=== PATIENT | female | born 1970 | race African-American/Black ===

== ENCOUNTER 2020-07-19 15:14 | Emergency (ER) | payer OTHER, SELFPAY ==
--- NOTE | ~2020-07-19 | XR_ITS ---
EXAMINATION: XR chest 2V DATE: 07/19/2020 15:42 INDICATION: Left-sided chest pain radiating down the left arm and hand TECHNIQUE: PA and lateral views of the chest were obtained. COMPARISON: Chest radiograph dated 02/25/2015 FINDINGS: The lungs remain clear with no focal airspace opacities, pulmonary edema, pleural effusion or pneumot horax. Borderline cardiomegaly. Mild thoracic levocurvature and mild thoracolumbar dextrocurvature wi th mild thoracic spondylosis. IMPRESSION: 1. Borderline cardiomegaly. Clear lungs. Reviewed, dictated and finalized at location H. STITCHER OPERATOR
--- NOTE | ~2020-07-19 | XR_ITS ---
EXAMINATION: XR hand LT min 3V EXAM DATE: 07/19/2020 16:13 INDICATION: No known recent injury provided at this time. Pain of the left hand. TECHNIQUE: Left hand frontal, lateral and oblique projections obtained and reviewed. There is no jennifer or study for comparison. FINDINGS: Left metacarpal bones are unremarkable. There are no acute fractures or dislocations ident ified. There is no subcutaneous gas. The soft tissue is unremarkable. There are no bony erosions identified. IMPRESSION: No acute osseous findings. Reviewed, dictated and finalized at location A. ECT MANAGEMENT CONSULTANT IMPRESSION: No acute osseous findings.
[2020-07-19 15:18] VITALS: BP 157/90; PULSE 67; RESP 18; O2SAT 98
[2020-07-19 15:25] VITALS: PULSE 73; RESP 17; O2SAT 98
--- NOTE | 2020-07-19 15:26 | ECG_ITS ---
Measurements Intervals [place] Rate: 67 P: 42 VA: 190 QRS: -57 QRSD: 95 T: -15 QT: 390 QTc: 412 Interpretive Statements SINUS RHYTHM LEFT ANTERIOR FASCICULAR BLOCK BORDERLINE T WAVE ABNORMALITY- INFERIOR LEADS ABNORMAL ECG Electronically Signed On 07-19-2020 20:14:07 MEAT DEPARTMENT MANAGER by Jordi Park D.O.
[2020-07-19 15:32] VITALS: PULSE 64; RESP 15; O2SAT 93
--- NOTE | 2020-07-19 15:37 | ED.CHESTPAIN ---
HPI - Chest Pain General Chief Complaint: Chest Pain Stated Complaint: chest/arm pain Time Seen by Provider: 07/19/20 15:33 History of Present Illness HPI narrative: Left middle finger pain for a couple of months. Radiates up the arm to the chest. Not better or worse with anything. Tried splinting it without improvement. No injury, swelling, color change. She reports that she has chronic chest pain. Related Data Home Medications Medication Instructions Recorded Confirmed No Home Medications 07/19/20 07/19/20 Allergies Allergy/AdvReac Type Severity Reaction Status Date / Time No Known Allergies Allergy Verified 07/19/20 15:24 Review of Systems Review of Systems: All systems reviewed & are unremarkable except as noted in HPI and below Constitutional: Constitutional: Denies chills, Denies fever(s) and Denies weakness Cardiovascular: Cardiovascular: Reports chest pain Respiratory: Respiratory: Denies dyspnea Gastrointestinal: Gastrointestinal: Denies nausea Neurologic: Reports numbness and Denies weakness [facility] Past Medical History Medical History (Updated 07/20/20 @ 00:00 by Abbie Henao) Chronic chest pain Social History Social History (Updated 07/19/20 @ 16:48 by Arsenio Quispe MD) Smoking status: Never smoker Exam Const: General: healthy appearing, no acute distress and alert Orientation/consciousness: patient oriented x3 HENMT: Head: normal to inspection Neck: Neck: normal visual inspection and no lymphadenopathy Chest: Chest palpation & inspection: no tenderness Resp: Effort & Inspection: normal respiratory effort Auscultation: clear to auscultation bilaterally, no rales, no rhonchi and no wheezes Cardio: Jugular venous distension: no JVD Rate: regular rate Rhythm: regular rhythm Heart sounds: no murmurs GI: Inspection: non-distended GI Palp: Yes Soft to palpation and No Tenderness to palpation present (GI) Skin: General skin exam: normal color Neuro: General: patient oriented x3 and moves all extremities Speech: normal speech Extrem: Other: Aside from reported pain, otherwise completely normal exam of hands and entire upper extremities Psych: Appearance: well kempt Affect: normal affect Course Vital Signs Vital signs: Vital Signs Pulse Rate 67 07/19/20 15:18 Respiratory Rate 18 07/19/20 15:18 Blood Pressure 157/90 H 07/19/20 15:18 Pulse Oximetry 98 11/19/20 15:18 Pulse Rate 82 07/19/20 17:01 Respiratory Rate 16 07/19/20 17:01 Blood Pressure 135/76 07/19/20 17:01 Pulse Oximetry 99 07/19/20 17:01 MDM - Chest Pain Differential Diagnosis Differential diagnosis: Likely other (Hand pain, fracture, arthritis) Medical Records Data Attestation: I reviewed the patient's medical records. Lab Data Attestation: I reviewed the patient's lab results. Result diagrams: 07/19/20 15:40 07/19/20 15:40 Labs: Lab Results 07/19/20 07/19/20 07/19/20 Range/Units 15:40 15:40 16:08 WBC 6.9 (4.5-10.0) K/mm3 RBC 4.21 (4.2-5.4) M/mm3 Hgb 13.0 (12.0-15.0) g/dL Hct 38.9 (37.0-47.0) % MCV 92.4 (80-100) fl MCH 30.9 (26-34) pg MCHC 33.4 (32-36) g/dl RDW 11.9 (11.5-14.5) % Plt Count 162 (150-375) k/mm3 MPV 10.3 (7.4-10.4) fl Immature Gran % (Auto) 0.3 (0-0.5) % Neut % (Auto) 55.2 (45.5-73.1) % Lymph % (Auto) 36.5 (18.3-44.2) % [place] % (Auto) 5.4 (2.6-8.5) % Eos % (Auto) 2.3 (0-4.4) % Baso % (Auto) 0.3 (0.2-1.2) % Lymph # (Auto) 2.51 (0.9-3.2) K/mm3 [place] # (Auto) 0.4 (0.1-0.6) K/mm3 Eos # (Auto) 0.2 (0-0.3) K/mm3 Baso # (Auto) 0.0 (0.0-0.1) K/mm3 Abs Immat Gran (auto) 0.02 (0.00-0.031) K/mm3 Absolute Neuts (auto) 3.8 (1.3-6.7) K/mm3 Absolute Nucleated RBC 0.0 (0.0-0.012) K/mm3 Nucleated RBC % 0.0 (0.0-0.2) % PT 13.3 (11.1-14.7) Seconds INR 1.0 APTT 29.1 (22.3-36.8) SECONDS So
[2020-07-19 15:45] VITALS: PULSE 68; RESP 19; O2SAT 100
[2020-07-19 15:48] LABS: Basophils Percent Auto 0.3 % (0.2-1.2); Eosinophils Absolute Auto 0.2 K/mm3 (0-0.3); Eosinophils Percent Auto 2.3 % (0-4.4); Hematocrit 38.9 % (37.0-47.0); Immature Granulocyte Absolute 0.02 K/mm3 (0.00-0.031); Immature Granulocyte Percent A 0.3 % (0-0.5); Lymphocytes Absolute Auto 2.51 K/mm3 (0.9-3.2); Lymphocytes Percent Auto 36.5 % (18.3-44.2); Mean Corpuscular HGB Conc 33.4 g/dl (32-36); Mean Corpuscular Hemoglobin 30.9 pg (26-34); Mean Corpuscular Volume 92.4 fl (80-100); Mean Platelet Volume 10.3 fl (7.4-10.4); Monocytes Absolute Auto 0.4 K/mm3 (0.1-0.6); Monocytes Percent Auto 5.4 % (2.6-8.5); Neutrophils Absolute Auto 3.8 K/mm3 (1.3-6.7); Neutrophils Percent Auto 55.2 % (45.5-73.1); Platelet Count Result 162 k/mm3 (150-375); Red Blood Count 4.21 M/mm3 (4.2-5.4); Red Cell Distribution Width 11.9 % (11.5-14.5); White Blood Count 6.9 K/mm3 (4.5-10.0)
[2020-07-19 15:58] LABS: Anion Gap 11 mmol/L (8-16); Blood Urea Nitrogen 11 mg/dL (7-17); Calcium 9.6 mg/dL (8.4-10.2); Carbon Dioxide 27 mmol/L (22-30); Chloride 103 mmol/L (98-107); Estimated CRCL calculation 80 ml/min; Estimated Glomerular Filt Rate > 60; Glucose 94 mg/dL (65-105); Potassium 3.9 mmol/L (3.4-5.0); Sodium 141 mmol/L (137-145)
[2020-07-19 16:00] VITALS: PULSE 65; RESP 19; O2SAT 100
[2020-07-19 16:09] LABS: Troponin I < 0.012 ng/mL (0.000-0.034)
[2020-07-19 16:24] LABS: Prothrombin Time 13.3 Seconds (11.1-14.7)
[2020-07-19 16:25] LABS: Partial Thromboplastin Time 29.1 SECONDS (22.3-36.8)
[2020-07-19 17:01] VITALS: BP 135/76; PULSE 82; RESP 16; O2SAT 99
== END 2020-07-19 17:02 | disposition home or self-care (01) ==
PROVIDERS: Emergency Provider Emergency Medicine; PCP Internal Medicine Gastroenterology
DX: M79.645 Pain in left finger(s) (principal)
CPT/HCPCS: 36415; 71046; 73130; 80048; 84484; 85025; 85610; 85730; 93005; 99284

== ENCOUNTER 2020-10-08 13:52 | Emergency (ER) | payer OTHER, SELFPAY ==
--- NOTE | ~2020-10-08 | XR_ITS ---
XR forearm RT 2V 10/08/2020 14:52 INDICATION: Right arm pain after injury PROCEDURE: 2 views right forearm COMPARISON: No prior studies for comparison. FINDINGS: Fracture, dislocation or subluxation is not identified. The soft tissues appear within norm al limits. No foreign bodies are identified. IMPRESSION: 1: NO ACUTE BONE OR JOINT ABNORMALITY IDENTIFIED. Reviewed, dictated and finalized at location B. DESIGNER DEVELOPER
--- NOTE | ~2020-10-08 | XR_ITS ---
XR shoulder RT min 2V 10/08/2020 14:52 INDICATION: Right shoulder pain after injury PROCEDURE: 4 views right shoulder COMPARISON: No prior studies for comparison. FINDINGS: Fracture, dislocation or subluxation is not identified. The soft tissues appear within norm al limits. No foreign bodies are identified. IMPRESSION: 1: NO ACUTE BONE OR JOINT ABNORMALITY IDENTIFIED. Reviewed, dictated and finalized at location B. LE FINANCIALS DEVELOPER
[2020-10-08 13:56] VITALS: BP 137/83; PULSE 70; RESP 16; TEMP 36.1; O2SAT 98
--- NOTE | 2020-10-08 14:35 | PC.NURSE ---
patient brought back to ED room 18 with c/o right forearm pain. see initial triage notes. no change in condition. patient has been in our waiting area due to no beds available in ED. assessments documented. waiting for further orders from provider.
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
--- NOTE | 2020-10-08 15:03 | PC.NURSE ---
patient back from xray. sitting in chair in room. updated on expected wait time.
[2020-10-08 16:09] VITALS: BP 148/82; PULSE 88; RESP 20; O2SAT 98
== END 2020-10-08 16:10 | disposition home or self-care (01) ==
PROVIDERS: Emergency Provider Emergency Medicine; PCP Internal Medicine Gastroenterology
DX: S50.11XA Contusion of right forearm, initial encounter (principal); W51.XXXA Accidental striking against or bumped into by another person, initial encounter
CPT/HCPCS: 73030; 73090; 99284; A4565

== ENCOUNTER 2021-03-07 14:50 | Emergency (ER) | payer OTHER, SELFPAY ==
[2021-03-07 15:06] VITALS: BP 130/79; PULSE 87; RESP 20; TEMP 37.1; O2SAT 98
--- NOTE | 2021-03-07 15:34 | ED.GENADULT ---
HPI - General Adult General Chief complaint: Upper Respiratory Infection Stated complaint: sore thoat Time Seen by Provider: 03/07/21 15:34 Source: patient and RN notes reviewed Mode of arrival: ambulatory Limitations: no limitations History of Present Illness HPI narrative: 50-year-old -[place] Citizen female presents with complaints of throat irritation, back pain, body aches, and nausea for the past 5 days. Shweta reports increasing symptoms. ?No treatment. No high fevers, drooling, neck or throat swelling. Pain is bilateral. Hurts to swallow. ?Exacerbation factors consist of eating and drinking. ?No rhinorrhea or nasal congestion. ?Hoarse voice increased after singing at [employer] on March 03, 2021. ?Nausea without vomiting or abdominal pain. ?Tolerating liquids well. ?Denies chills, fatigue, dyspnea, difficulty swallowing, jaw pain, dental pain, facial pain, foreign body sensation, and rash. ?Remains active. The patient reports she was diagnosed with COVID-19 in March 2020. ?The patient reports she is not waiting for the results of a COVID-19 lab test. The patient reports she does not have a new or worsening cough. Denies chest pain. The patient reports she does not have any loss of taste or smell and diarrhea. ?Denies recent traveling. ?Denies concerns for COVID-19 or exposures. ?At this time, the patient is not suspected of having COVID-19. Some parts of this dictation were generated by voice recognition software and may contain typographical and/or grammatical inaccuracies. Related Data Allergies Allergy/AdvReac Type Severity Reaction Status Date / Time No Known Allergies Allergy Verified 10/08/20 14:00 Review of Systems Review of Systems: Narrative: CONSTITUTIONAL: Denies fever, chills, sweats. EYES: Denies visual changes, redness, discharge. ENT: Denies rhinorrhea, otalgia, sore throat. Complains of irritated throat, congestion. CARDIOVASCULAR: Denies chest pain, palpitations, edema. RESPIRATORY: Denies dyspnea, wheezing, cough. GASTROINTESTINAL: Denies abdominal pain, vomiting, diarrhea. Complains of nausea. GENITOURINARY: Denies dysuria, hematuria, abnormal discharge. SKIN: Denies rash or itching. MUSCULOSKELETAL: Denies joint pain, or myalgia. Complains of acute back pain. NEUROLOGIC: Denies numbness or focal weakness. PSYCHIATRIC: Denies anxiety or depression. All systems reviewed & are unremarkable except as noted in HPI and below. [facility] Past Medical History Medical History (Updated 03/08/21 @ 00:01 by Abbie Henao) Chronic chest pain COVID-19 03/2020 Postmenopausal Surgical History Surgical History (Updated 03/07/21 @ 15:45 by YOSSI Mcknight) No significant past surgical history Family History Family History (Updated 03/07/21 @ 15:46 by YOSSI Mcknight) Father Hypertension Mother , Related to COVID-19 Hypertension COVID-19 Social History Social History (Updated 03/07/21 @ 15:47 by YOSSI Mcknight) Smoking status: Never smoker Tobacco type: cigarettes Second hand tobacco smoke exposure: No Alcohol intake: never Substance use: never Substance use type: does not use Living arrangements: with family Occupation/Education: occupation Gender identity (if verbalized by the patient): Female Sexual Orientation (if Verbalized by the Patient): Straight or Heterosexual Comments At time of signature, agree with the nurse past medical, surgical, social, and family history. There is no relevant family history pertinent to the presenting complaint. Exam Narrative: Exam Narrative: GENERAL: This is a well-nourished, well-developed patient, in no apparent distress. Speaks in full sentences without deficits and ambulates with steady gait without dyspnea. HEAD: Normocephalic, atraumatic. EYES: PERRL. Sclera clear/white. Vision is grossly intact. EARS: External ears normal, auditory canals clear and without drainage, TMs normal without perforation. H
== END 2021-03-07 16:01 | disposition home or self-care (01) ==
PROVIDERS: Emergency Provider Nurse Practitioner Family; PCP Internal Medicine Gastroenterology
DX: J02.9 Acute pharyngitis, unspecified (principal); Z86.16 Personal history of COVID-19
CPT/HCPCS: 87081; 87880; 99213; G0463

== ENCOUNTER 2021-08-05 10:56 | Emergency (ER) | payer OTHER, SELFPAY ==
--- NOTE | ~2021-08-05 | CT_ITS ---
EXAMINATION: CT abdomen pelvis wo con DATE: 08/05/2021 13:37 INDICATION: Abdominal pain. TECHNIQUE: Computed tomography (CT) of the abdomen and pelvis was performed without intravenous contr ast. Automated exposure control and iterative reconstruction technique were employed. The dose-length product was 602.14 mGy-cm. COMPARISON: CT abdomen and pelvis 05/30/2015 FINDINGS: The visualized portions of the lung bases demonstrate mild atelectasis. No pleural effusion . The heart size is normal. No pericardial effusion. There are cysts in the liver measuring up to 2.1 cm. The spleen, gallbladder, pancreas, adrenal glands, and kidneys are normal. There is no urolithia sis. There are no dilated loops of bowel. The appendix is normal. There are no pathologically enlarge d lymph nodes. There is no free intraperitoneal fluid. There is mild thoracolumbar spondylosis. IMPRESSION: 1. No etiology for the patient's symptoms. Reviewed, dictated and finalized at location A. BROADCASTER
--- NOTE | ~2021-08-05 | XR_ITS ---
EXAMINATION: XR chest 2V DATE: 08/05/2021 12:42 INDICATION: Left-sided chest pain TECHNIQUE: PA and lateral views of the chest are obtained. COMPARISON: 07/19/2020 FINDINGS: The lungs are free of acute opacities. There is no pleural effusion or pneumothorax. The ca rdiomediastinal silhouette is normal. There is mild thoracic spondylosis. IMPRESSION: 1. No acute cardiopulmonary abnormality. Reviewed, dictated and finalized at location A. RIAL EMBALMER
[2021-08-05 11:01] VITALS: BP 149/82; PULSE 63; RESP 16; TEMP 36.1; O2SAT 99
--- NOTE | 2021-08-05 12:22 | ECG_ITS ---
Measurements Intervals [place] Rate: 59 P: 8 [place]: 180 QRS: -68 QRSD: 90 T: 11 QT: 407 QTc: 404 Interpretive Statements SINUS BRADYCARDIA LEFT AXIS DEVIATION BORDERLINE R WAVE PROGRESSION, ANTERIOR LEADS BORDERLINE T WAVE ABNORMALITY- INFERIOR LEADS BORDERLINE ECG Electronically Signed On 08-05-2021 15:02:29 HOUSEHOLD REFRIGERATOR MECHANIC by Jordi Park D.O.
--- NOTE | 2021-08-05 12:51 | ED.GENADULT ---
HPI - General Adult General Chief complaint: Abdominal Pain Stated complaint: left side pain Time Seen by Provider: 08/05/21 12:09 Source: patient History of Present Illness HPI narrative: Patient is a 50 y/o female complaining of left sided abdominal pain and left back pain. She describes her pain as contractions and rates it as 7/10. She took Alleve, which helps with her pain at least temporarily. She has no vomiting, diarrhea or dysuria. She also has some intermittent chest pain but chest pain at this time. Related Data Allergies Allergy/AdvReac Type Severity Reaction Status Date / Time No Known Allergies Allergy Verified 08/05/21 12:06 Review of Systems Constitutional: Constitutional: Denies chills, Denies fever(s), Denies headache(s) and Denies weakness Eyes: Eyes: Denies blurry vision ENT: Denies headache(s) and Denies neck pain Cardiovascular: Cardiovascular: Reports chest pain and Denies dyspnea Respiratory: Respiratory: Denies cough and Denies dyspnea Gastrointestinal: Gastrointestinal: Reports abdominal pain, Denies diarrhea, Denies nausea and Denies vomiting Genitourinary: Genitourinary: Denies hematuria and Denies dysuria Musculoskeletal: Musculoskeletal: Reports back pain and Denies neck pain Neurologic: Denies headache(s) and Denies weakness PMFSH Past Medical History Medical History Chronic chest pain COVID-19 03/2020 Postmenopausal Surgical History Surgical History No significant past surgical history Family History Family History Father Hypertension Mother , Related to COVID-19 Hypertension COVID-19 Social History Social History Smoking status: Never smoker Tobacco type: cigarettes Second hand tobacco smoke exposure: No Alcohol intake: never Substance use: never Substance use type: does not use Gender identity (if verbalized by the patient): Female Sexual Orientation (if Verbalized by the Patient): Straight or Heterosexual Exam Const: General: no acute distress and well developed Orientation/consciousness: oriented to person, oriented to place, oriented to time and patient oriented x3 HENMT: Head: normocephalic Ears: external ears normal General nose exam: Normal external nose present Eyes: General: appearance normal, both eyes and all related structures Conjunctivae: conjunctivae normal Neck: Neck: normal visual inspection and full ROM Chest: Chest palpation & inspection: normal inspection of the chest and no tenderness Resp: Effort & Inspection: normal respiratory effort Auscultation: clear to auscultation bilaterally Cardio: Rate: regular rate Rhythm: regular rhythm GI: GI Palp: No abdominal tenderness and Yes Soft to palpation Skin: General skin exam: normal color and turgor normal Neuro: General: oriented to person, oriented to place, oriented to time and patient oriented x3 Cognition (Neuro): normal cognition Extrem: General: normal to inspection, full ROM and no pedal edema Psych: Appearance: grossly normal Mental Status: mental status grossly normal Affect: normal affect Course Vital Signs Vital signs: Vital Signs Temperature 36.1 C L 08/05/21 11:01 Pulse Rate 63 08/05/21 11:01 Respiratory Rate 16 08/05/21 11:01 Blood Pressure 149/82 H 08/05/21 11:01 Pulse Oximetry 99 08/05/21 11:01 Temperature 36.1 C L 08/05/21 11:01 Pulse Rate 63 08/05/21 11:01 Respiratory Rate 16 08/05/21 11:01 Blood Pressure 149/82 H 08/05/21 11:01 Pulse Oximetry 99 08/05/21 11:01 Medical Decision Making Vital Signs Vital Signs: Vital Signs Temperature 36.1 C L 08/05/21 11:01 Pulse Rate 63 08/05/21 11:01 Respiratory Rate 16 08/05/21 11:01 Blood Pressure 149/82 H 08/05/21 11:01 Pulse Oxi
[2021-08-05 13:03] LABS: Basophils Percent Auto 0.3 % (0.2-1.2); Eosinophils Absolute Auto 0.1 K/mm3 (0-0.3); Eosinophils Percent Auto 1.1 % (0-4.4); Hematocrit 43.2 % (37.0-47.0); Hemoglobin 14.3 g/dL (12.0-15.0); Immature Granulocyte Absolute 0.01 K/mm3 (0.00-0.031); Immature Granulocyte Percent A 0.1 % (0-0.5); Lymphocytes Absolute Auto 2.16 K/mm3 (0.9-3.2); Lymphocytes Percent Auto 28.8 % (18.3-44.2); Mean Corpuscular HGB Conc 33.1 g/dl (32-36); Mean Corpuscular Volume 93.5 fl (80-100); Mean Platelet Volume 9.8 fl (7.4-10.4); Monocytes Absolute Auto 0.3 K/mm3 (0.1-0.6); Neutrophils Absolute Auto 4.9 K/mm3 (1.3-6.7); Neutrophils Percent Auto 65.7 % (45.5-73.1); Platelet Count Result 179 k/mm3 (150-375); Red Blood Count 4.62 M/mm3 (4.2-5.4); White Blood Count 7.5 K/mm3 (4.5-10.0)
[2021-08-05 13:12] LABS: Alanine Aminotransferase 20 U/L (4-35); Albumin Level 4.9 g/dL (3.5-5.1); Alkaline Phosphatase 83 U/L (38-126); Anion Gap 8 mmol/L (8-16); Aspartate Amino Transferase 24 U/L (14-36); Bilirubin,Total 0.4 mg/dL (0.2-1.3); Blood Urea Nitrogen 10 mg/dL (7-17); Calcium 9.9 mg/dL (8.4-10.2); Carbon Dioxide 28 mmol/L (22-30); Chloride 99 mmol/L (98-107); Estimated CRCL calculation 80 ml/min; Estimated Glomerular Filt Rate > 60; Glucose 100 mg/dL (65-110); Potassium 3.9 mmol/L (3.4-5.0); Sodium 135 mmol/L (137-145)
[2021-08-05 13:24] LABS: Troponin I < 0.012 ng/mL (0.000-0.034)
[2021-08-05 14:43] LABS: Add Urine Microscopic? NO; Appearance Urine Clear (Clear); Bilirubin Urine Negative (Negative); Blood Urine Negative (Negative); Color Urine Yellow (Yellow); Glucose Urine UA Negative (Negative); Ketones Urine Negative (Negative); Leukocyte Esterase Ur Negative LEU/UL (Negative); Nitrate Urine Negative (Negative); Protein Urine Negative (Negative); Specific Grav Ur 1.018 (1.001-1.035); Urobilinogen Urine Negative mg/dL (<2.0)
[2021-08-05 16:14] LABS: Troponin I < 0.012 ng/mL (0.000-0.034)
== END 2021-08-05 17:26 | disposition home or self-care (01) ==
PROVIDERS: Emergency Provider Emergency Medicine; PCP Internal Medicine Gastroenterology
DX: R10.84 Generalized abdominal pain (principal); R07.9 Chest pain, unspecified; Z86.16 Personal history of COVID-19; R00.1 Bradycardia, unspecified; R94.31 Abnormal electrocardiogram [ECG] [EKG]
CPT/HCPCS: 36415; 71046; 74176; 80053; 81003; 84484; 85025; 93005; 99284

== ENCOUNTER 2024-07-29 10:48 | Emergency (ER) | payer SELFPAY ==
--- NOTE | ~2024-07-29 | XR_ITS ---
EXAMINATION: XR chest 2V DATE: 07/29/2024 11:30 INDICATION: Cough and shortness of breath TECHNIQUE: PA and lateral views of the chest were obtained. COMPARISON: Chest radiograph dated 08/05/2021 FINDINGS: The lungs are clear with no focal airspace opacities, pulmonary edema, pleural effusion or pneumothor ax. The cardiomediastinal silhouette is normal. Visualized bones and soft tissues are unremarkable. IMPRESSION: 1. No acute cardiopulmonary disease. Reviewed, dictated and finalized at location A. NISTRATIVE RESIDENT
[2024-07-29 10:53] VITALS: BP 145/94; PULSE 75; RESP 20; O2SAT 99
[2024-07-29 11:19] VITALS: TEMP 36.5
[2024-07-29 11:21] VITALS: BP 124/82; PULSE 66; RESP 16; TEMP 36.5; O2SAT 99
--- NOTE | 2024-07-29 11:48 | ED_ITS ---
HPI - General Adult General Chief complaint: Upper Respiratory Infection Stated complaint: sob with exertion? cough, full chest Time Seen by Provider: 07/29/24 11:17 History of Present Illness HPI narrative: This is a 53-year-old female presenting with 5 days of URI symptoms. Symptoms include cough productive cough and subjective fever and chills. No chest pain. No nausea vomiting or diarrhea. Patient notes some dyspnea on exertion. Related Data Allergies Allergy/AdvReac Type Severity Reaction Status Date / Time No Known Allergies Allergy Verified 07/29/24 10:49 [facility] Past Medical History Medical History Chronic chest pain COVID-19 03/2020 Postmenopausal Surgical History Surgical History No significant past surgical history Family History Family History Father Hypertension Mother , Related to COVID-19 Hypertension COVID-19 Social History Social History Smoking status: Never smoker Tobacco type: cigarettes Second hand tobacco smoke exposure: No Alcohol intake: never Substance use: never Substance use type: does not use Living arrangements: with family Occupation/Education: occupation Gender identity (if verbalized by the patient): Female Sexual Orientation (if Verbalized by the Patient): Straight or Heterosexual Exam Narrative: APPEARANCE: No apparent distress. well-appearing Head: atraumatic. EYES: EOMI, NOSE: Atraumatic NECK: Trachea midline RESPIRATORY: No increased rate of breathing , clear to auscultation, 100% CARDIOVASCULAR: RRR, no peripheral edema ABDOMINAL: Non-distended soft nontender MUSCULOSKELETAl: No obvious deformities NEURO: Alert. Moving 4/4 extremities SKIN:: Warm, dry. Normal color PSYCHIATRIC: Normal affect Course Vital Signs Vital signs: Vital Signs Pulse Rate 75 07/29/24 10:53 Respiratory Rate 20 07/29/24 10:53 Blood Pressure 145/94 H 07/29/24 10:53 Pulse Oximetry 99 07/29/24 10:53 Oxygen Delivery Room Air 07/29/24 10:53 Temperature 97.7 F 07/29/24 11:21 Pulse Rate 66 07/29/24 11:21 Respiratory Rate 16 07/29/24 11:21 Blood Pressure 124/82 07/29/24 11:21 Pulse Oximetry 99 07/29/24 11:21 Oxygen Delivery Room Air 07/29/24 10:53 Medical Decision Making MDM Narrative Medical decision making narrative: -Course: 53-year-old well-appearing female presenting for cough x5 days. Chest x-ray negative for pneumonia. Viral swabs neg. Patient is well-appearing with stable vital signs and normal oxygen saturation. -DDX includes but is not limited to: Viral syndrome, pneumonia, CHF -Independent interpretation of studies: labs and imaging reviewed -Shared decision making / Disposition: discharge Vital Signs Vital Signs: Vital Signs Pulse Rate 75 07/29/24 10:53 Respiratory Rate 20 07/29/24 10:53 Blood Pressure 145/94 H 07/29/24 10:53 Pulse Oximetry 99 07/29/24 10:53 Oxygen Delivery Room Air 07/29/24 10:53 Temperature 97.7 F 07/29/24 11:21 Pulse Rate 66 07/29/24 11:21 Respiratory Rate 16 07/29/24 11:21 Blood Pressure 124/82 07/29/24 11:21 Pulse Oximetry 99 07/29/24 11:21 Oxygen Delivery Room Air 07/29/24 10:53 Lab Data Labs: Lab Results 07/29/24 Range/Units 11:17 Influenza A (RT-PCR) Negative (Negative) Influenza B (RT-PCR) Negative (Negative) RSV (RT-PCR) Negative (Negative) SARS-CoV-2 RNA (RT-PCR) Negative (Negative) Discharge Plan Discharge Clinical Impression: Upper respiratory infection Patient Disposition: Home, Self-Care Condition: Stable Instructions: Antibiotic Form, Viral Syndrome (ED) Additional Instructions: please take Motrin Tylenol for fevers. Please follow-up with your primary care physician as needed. Please return to the ED if he develops severe chest pain difficulty breathing or feel like your condition is getting worse. Prescriptions: No Action cetirizine [Zyrtec] 10 mg tablet 10 mg PO DAILY 60 Days Qty: 60 0RF ibuprofen 800 mg tablet 800 mg PO TID PRN (Reason: pain) Qty: 30 0RF methylprednisolone 4 mg tablets,dose pack See Rx Instructions .ROUTE .COMPLEX Qty: 21 0RF Rx Instructions: orally per package directions fluticasone propionate [Allergy Relief (fluticasone)] 50 mcg/actuation spray,suspension 1 spray NASAL BID Qty: 16 0RF Rx Instructions: administer into each nostril Follow-up/Referrals: UNKNOWN,DOCTOR [Primary Care Provider] -
[2024-07-29 12:00] VITALS: BP 124/68; PULSE 82; RESP 16; TEMP 36.4; O2SAT 100
[2024-07-29 12:13] LABS: Influenza A QL RT-PCR Negative (Negative); Influenza B QL RT-PCR Negative (Negative); RSV RNA, RT-PCR Negative (Negative); SARS-CoV-2 RNA PCR Negative (Negative)
== END 2024-07-29 12:34 | disposition home or self-care (01) ==
PROVIDERS: Physician Assistant; Emergency Provider Emergency Medicine
DX: J06.9 Acute upper respiratory infection, unspecified (principal); Z20.822 Contact with and (suspected) exposure to COVID-19
CPT/HCPCS: 71046; 87637; 99283